=== PATIENT | female | born 1990 | race Caucasian/White ===

== ENCOUNTER 2017-05-16 09:38 | Emergency (ER) | payer MEDICAID, OTHER, SELFPAY ==
[~2017-05-16] VITALS: Ht 167.6 cm; Wt 59.1 kg
[2017-05-16] MEDS ORDERED: MIRA3350 PO (11:47)
[2017-05-16] MEDS ORDERED: NAPR500T PO (11:47)
--- NOTE | 2017-05-16 11:51 | REP ---
PELVIC ULTRASOUND: Real-time sonographic evaluation of the pelvis is performed utilizing transabdominal and endovaginal technique. The bladder measures 5.0 x 2.6 x 8.1 cm. The uterus measures 8.5 x 4.1 x 4.9 cm. Endometrial thickness is 4 mm. An IUD is seen in the endometrial canal. Right ovary measures 4.5 x 3.2 x 3.7 cm. Right ovarian cyst measures 3.7 x 2.2 x 3.1 cm. Left ovary measures 3.4 x 2.2 x 2.7 cm. There is no other evidence of adnexal mass or free fluid. There is blood flow seen in each ovary with duplex Doppler evaluation, with no torsion, RI right ovary 0.49 and the left ovary 0.62. IMPRESSION: IUD in the endometrial canal. Right ovarian cyst measures 3.7 cm in maximum diameter. No torsion or free fluid. Signed by Tarun José MD 05/16/2017 12:52 P
[2017-05-16 12:01] VITALS: BP 129/68
[2017-08-05] MEDS ORDERED: IBUP-1022 PO (17:56)
== END 2017-05-16 12:03 | disposition home or self-care (01) ==
LOC: M ED 09:38
DX: N83.291 Other ovarian cyst, right side (principal); F17.200 Nicotine dependence, unspecified, uncomplicated; Z97.5 Presence of (intrauterine) contraceptive device

== ENCOUNTER 2017-07-27 16:21 | Emergency (ER) | payer MEDICAID, OTHER ==
[~2017-07-27] VITALS: Ht 167.6 cm; Wt 59.1 kg
[~2017-07-27 16:21] MED LIST: MIRA3350 PO; NAPR500T PO
[2017-07-27] MEDS ORDERED: KETOROLAC 30 MG/ML VIAL (J1885) IV ONE (17:45)
[2017-07-27 18:11] LABS: MEAN CORPUSCULAR HGB CONC 33.5 g/dl (32.0-36.5); MEAN CORPUSCULAR VOLUME 92.4 fl (80.0-96.0); PLATELET COUNT, AUTOMATED 259 10^3/uL (150-450); RED CELL DISTRIBUTION WIDTH 14.2 % (11.5-14.5); WHITE BLOOD COUNT 5.5 10^3/uL (4.0-10.0)
[2017-07-27 18:13] LABS: ADD MANUAL DIFFER YES; DIFF SLIDE NUMBER 321; POSITIVE MORPH POS FLAG
[2017-07-27 18:37] LABS: ALBUMIN 3.5 GM/DL (3.2-5.2); ALBUMIN/GLOBULIN RATIO 0.71 (1.00-1.93); ALKALINE PHOSPHATASE 76 U/L (45-117); ALT/SGPT 15 U/L (12-78); AMYLASE 42 U/L (25-115); ANION GAP 8 MEQ/L (8-16); AST/SGOT 11 U/L (15-37); BILIRUBIN,DIRECT < 0.1 MG/DL (0.0-0.2); BILIRUBIN,TOTAL 0.2 MG/DL (0.2-1.0); BLOOD UREA NITROGEN 6 MG/DL (7-18); CALCIUM LEVEL 8.5 MG/DL (8.5-10.1); CARBON DIOXIDE LEVEL 29 MEQ/L (21-32); CHLORIDE LEVEL 98 MEQ/L (98-107); CREATININE FOR GFR 0.68 MG/DL (0.55-1.02); GLOMERULAR FILTRATION RATE > 60.0 (>60); GLUCOSE, FASTING 92 MG/DL (70-105); POTASSIUM SERUM 3.6 MEQ/L (3.5-5.1); SODIUM LEVEL 135 MEQ/L (136-145); TOTAL PROTEIN 8.4 GM/DL (6.4-8.2)
[2017-07-27 18:38] LABS: EOSINOPHILS 2 % (0-5)
[2017-07-27] MEDS ORDERED: ISOVUE-370 76% 100ML VIAL (Q9967) As Ordered ONE (18:40)
[2017-07-27] MEDS ORDERED: ACET30TAB PO (19:23)
[2017-07-27 19:26] VITALS: BP 102/65
[2017-08-05] MEDS ORDERED: IBUP-1022 PO (17:56)
--- NOTE | 2017-08-08 08:35 | REP ---
CT ABDOMEN AND PELVIS WITH IV CONTRAST: 07/27/2017. CLINICAL HISTORY: Periumbilical pain, nausea and vomiting. History of ovarian cyst. COMPARISON: Pelvic ultrasound 07/29/2017, 05/16/2017. TECHNIQUE: Bolus of 100 ml Isovue 370 and scanning of the abdomen pelvis with both coronal and sagittal reconstructions provided. FINDINGS: CT ABDOMEN: Lung bases show minimal dependent atelectatic changes in the deep sulcus right lower lung zone. No effusion or infiltrate. Heart not enlarged. No pericardial thickening, pericardial effusion or hiatal hernia. The liver is not enlarged and shows no focal hepatic mass or biliary dilatation. It is normal for arterial phase imaging. Gallbladder is contracted without calcified stone. Pancreas is unremarkable. There is a 12 mm hypodensity in the superior aspect of the spleen most consistent with a small splenic hemangioma. No other splenic lesion or splenomegaly. There is no ascites. Adrenal glands are normal. Kidneys show function without obstruction, stone, mass or cyst. Extrarenal pelves noted. No hydroureter or ureteral stone. Colon and small bowel loops grossly unremarkable. Lung window review of all CT slices abdomen and pelvis shows no perforation, free air or abscess. Bone windows show L5-S1 grade 1 anterolisthesis with bilateral L5 spondylolysis. Disc space narrowed at L5-S1. The levels above show disc space heights intact. All vertebral body heights intact. Posterior elements were otherwise unremarkable. Visualized ribs intact. Ventral abdominal wall shows a midline umbilical hernia with omental fat within it measuring [address] PELVIS: Bony hips, pelvis, sacrum, SI joints and lumbosacral junction show small enchondroma of the greater trochanter of the left hip. This is a benign finding. Uterus is anteverted. IUD in place in the body and fundus of the uterus. Both ovaries show multiple low-density follicles, the largest is 2.5 cm on the right representing a small cyst. This corresponds precisely to the finding on ultrasound today. No pelvic free fluid. The distal left colon, sigmoid and rectum intact. No adenopathy. No ventral or inguinal hernia. IMPRESSION: 1. Fat-containing umbilical hernia without bowel incarceration or obstruction.2. Low-density lesions in both ovaries, the largest on the right a 2.5 cm cyst. 3. 12 mm low density splenic lesion most consistent with hemangioma. 4. No other significant findings. 5. I wish to note that this is my initial opportunity for evaluation of this study. The original dictation could not be retrieved. A wet reading was provided by my colleague at the time of the exam to the ED. Signed by Irvin Villa MD 08/08/2017 09:15 A
== END 2017-07-27 19:38 | disposition home or self-care (01) ==
LOC: M ED 16:21
DX: N83.201 Unspecified ovarian cyst, right side (principal); N83.202 Unspecified ovarian cyst, left side; K42.9 Umbilical hernia without obstruction or gangrene; Z72.0 Tobacco use
CPT/HCPCS: 74177; 80048; 80076; 81001; 81025; 82150; 83690; 85025; 96374; 99284; J1885; Q9967

== ENCOUNTER 2017-07-29 09:42 | Emergency (ER) | payer OTHER ==
[~2017-07-29] VITALS: Ht 167.6 cm; Wt 59.1 kg
[~2017-07-29 09:42] MED LIST changes: +ACET30TAB PO
[2017-07-29] MEDS ORDERED: KETOROLAC 30 MG/ML VIAL (J1885) IV ONE (10:15)
[2017-07-29] MEDS ORDERED: MORPHINE 2 MG/ML 1ML SYRINGE IV ONE (10:15)
[2017-07-29] MEDS ORDERED: NS 500 ML IV ONE (10:15)
[2017-07-29 10:28] LABS: MEAN CORPUSCULAR HEMOGLOBIN 30.6 pg (27.0-33.0); MEAN CORPUSCULAR HGB CONC 33.3 g/dl (32.0-36.5); MEAN CORPUSCULAR VOLUME 91.9 fl (80.0-96.0); PLATELET COUNT, AUTOMATED 305 10^3/uL (150-450); RED CELL DISTRIBUTION WIDTH 14.2 % (11.5-14.5); WHITE BLOOD COUNT 5.5 10^3/uL (4.0-10.0)
[2017-07-29 10:34] LABS: ADD MANUAL DIFFER YES; DIFF SLIDE NUMBER 167; POSITIVE MORPH POS FLAG
[2017-07-29 10:56] LABS: ALBUMIN 3.4 GM/DL (3.2-5.2); ALBUMIN/GLOBULIN RATIO 0.83 (1.00-1.93); ALKALINE PHOSPHATASE 70 U/L (45-117); ALT/SGPT 15 U/L (12-78); ANION GAP 8 MEQ/L (8-16); AST/SGOT 9 U/L (15-37); BILIRUBIN,DIRECT < 0.1 MG/DL (0.0-0.2); BILIRUBIN,TOTAL 0.2 MG/DL (0.2-1.0); BLOOD UREA NITROGEN 5 MG/DL (7-18); CALCIUM LEVEL 8.5 MG/DL (8.5-10.1); CARBON DIOXIDE LEVEL 29 MEQ/L (21-32); CHLORIDE LEVEL 101 MEQ/L (98-107); CREATININE FOR GFR 0.61 MG/DL (0.55-1.02); GLOMERULAR FILTRATION RATE > 60.0 (>60); GLUCOSE, FASTING 94 MG/DL (70-105); SODIUM LEVEL 138 MEQ/L (136-145); TOTAL PROTEIN 7.5 GM/DL (6.4-8.2)
[2017-07-29 11:18] LABS: BANDS 1 % (< 11); BASOPHILS 1 % (0-4)
[2017-07-29 11:19] LABS: ANISOCYTOSIS 1+
--- NOTE | 2017-07-29 11:28 | REP ---
Abdominal wall ultrasound for umbilical hernia: Comparison is the CT of the abdomen dated 07/27/2017. Umbilical hernia is identified measuring 2.5 cm transversely. No peristalsing bowel is identified within the hernia sac, however, there appears to be fluid within the hernia sac superiorly. Signed by Tarun Padron MD 07/29/2017 11:19 A
--- NOTE | 2017-07-29 11:36 | REP ---
PELVIC ULTRASOUND: Real-time sonographic evaluation sonographic evaluation of the pelvis is performed utilizing transabdominal and endovaginal technique. The bladder measures 4.4 x 4.8 x 9.4 cm. The uterus measures 8.6 x 3.8 x 4.9 cm. The endometrial thickness is 3 mm. Right ovary measures 4.6 x 2.5 x 4.3 cm and contains a complex cystic structure probably representing a complex dominant follicle 2.5 x 2.0 x 2.4 cm. Left ovary measures 3.8 x 2.2 x 3.6 cm and is unremarkable. There is no evidence of ovarian torsion bilaterally with blood flow seen in each ovary with duplex Doppler evaluation, RI right ovary 0.59 and left ovary 0.50. There is no other evidence of adnexal mass or free fluid. IUD is seen in the endometrial canal. IMPRESSION: Complex cystic structure in the right ovary 2.5 cm in diameter. No torsion or free fluid. Signed by Tarun José MD 07/29/2017 05:48 P
[2017-07-29 11:52] VITALS: BP 100/61
[2017-08-05] MEDS ORDERED: IBUP-1022 PO (17:56)
== END 2017-07-29 11:53 | disposition home or self-care (01) ==
LOC: M ED 09:42
DX: N83.201 Unspecified ovarian cyst, right side (principal); K42.9 Umbilical hernia without obstruction or gangrene; F17.210 Nicotine dependence, cigarettes, uncomplicated
CPT/HCPCS: 36415; 76705; 76830; 76856; 80048; 80076; 81001; 81025; 83605; 83690; 85025; 93976; 96361; 96374; 96375; 99284; J1885

== ENCOUNTER 2017-08-12 09:49 | Emergency (ER) | payer OTHER ==
[~2017-08-12] VITALS: Ht 167.6 cm; Wt 59.1 kg
[~2017-08-12 09:49] MED LIST changes: +IBUP-1022 PO
[2017-08-12 09:50] VITALS: BP 118/80
[2017-08-12] MEDS ORDERED: CYCL10TA PO (10:33)
[2017-08-12] MEDS ORDERED: PRED20TA PO (10:33)
[2017-08-12] MEDS ORDERED: KEFL500C17 PO (10:33)
== END 2017-08-12 10:44 | disposition home or self-care (01) ==
LOC: M ED 09:49
DX: R09.1 Pleurisy (principal); J32.9 Chronic sinusitis, unspecified; F17.210 Nicotine dependence, cigarettes, uncomplicated

== ENCOUNTER 2018-03-25 12:58 | Emergency (ER) | payer OTHER ==
[2018-03-25] MEDS: IBUPROFEN 800 MG TAB PO (13:40)
== END 2018-03-25 14:31 | disposition home or self-care (01) ==
LOC: M ED 12:58
DX: S80.02XA Contusion of left knee, initial encounter (principal); X58.XXXA Exposure to other specified factors, initial encounter; Y92.9 Unspecified place or not applicable; Y93.9 Activity, unspecified; Y99.9 Unspecified external cause status; Z72.0 Tobacco use
CPT/HCPCS: 73564

== ENCOUNTER 2020-01-11 18:01 | Emergency (ER) | payer OTHER ==
[~2020-01-11] VITALS: Ht 167.6 cm; Wt 62.9 kg
[~2020-01-11 18:01] MED LIST changes: +ACET-716 PO; -ACET30TAB PO; +CYCL10TA PO; +KEFL500C17 PO; +MOBI4TAB PO; +NAPR-837 PO; -NAPR500T PO; +PRED20TA PO
[2020-01-11] MEDS ORDERED: MIRE1IUD IU (18:09)
[2020-01-11] MEDS ORDERED: IBUPROFEN 600 MG TAB PO ONE (18:15)
[2020-01-11] MEDS ORDERED: LIDOCAINE 4% CREAM 5GM (LMX4) TOP ONE (18:15)
--- NOTE | 2020-01-11 19:01 | REP ---
HISTORY: Pain after trauma. FINDINGS: Five views of the right ribs show no acute fracture or destructive osseous lesion. The accompanying frontal view of the chest shows no cardiomegaly, infiltrates, effusions or pneumothoraces. IMPRESSION: Negative right rib series. Electronically Signed by Jose Alfredo Guerrero DO 01/11/2020 07:12 P
[2020-01-11] MEDS ORDERED: ANEC4CRE3 TOP (19:10)
[2020-01-11] MEDS ORDERED: IBUP-1022 PO (19:10)
[2020-01-11 19:17] VITALS: BP 115/71
== END 2020-01-11 19:17 | disposition home or self-care (01) ==
LOC: M ED 18:01
DX: S20.211A Contusion of right front wall of thorax, initial encounter (principal); V18.4XXA Pedal cycle driver injured in noncollision transport accident in traffic accident, initial encounter; Y92.410 Unspecified street and highway as the place of occurrence of the external cause; Z97.5 Presence of (intrauterine) contraceptive device; F17.210 Nicotine dependence, cigarettes, uncomplicated